=== PATIENT | male | born 1950 | race African-American/Black ===

== ENCOUNTER 2019-02-19 19:05 | Inpatient (IN) | payer OTHER ==
[~2019-02-19] VITALS: Ht 167.6 cm; Wt 66.0 kg
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
--- NOTE | 2019-02-20 05:07 | NUR ---
Patient has been restless, moaning and reporting pain. Patient was given PRN Tylenol and spit the medication out on the floor. Patient appears to be having restlessness and anxiety related more to pain in his right hip. Commercial [employer] Head SALVADOR Díaz notified. Order obtained for PRN Oxycodone. Patient stated he will take the medication from nurse once received from pharmacy.
[2019-02-20 07:30] VITALS: BP 151/85
--- NOTE | 2019-02-20 09:12 | NUR ---
PATIENT WAS SLEEPING WHEN ARRIVING ON UNIT,APPROACHED TO HELP GET READY FOR BREAKFAST. VERBAL [id number] THE NORM - ADDRESSING STAFF WITH DISRESPECT. MULTIPLE TIMES ADVISED TO CORRECT HIS LANGUAGE BUT CONTINUED WITH VULGARITIES AND THREATENING GESTURES. ATE WELL AND TOOK MEDICATIONS WITHOUT INCIDENCE. BLOOD SUGAR 177 AND GIVEN 6 UNITS SCHEDULED OF HUMALOG - PATIENT SCREAMING AND CARING ON IN DINING AREA AND ADVISED TO GO TO HIS ROOM. STATED HAD PAIN IN RIGHT HIP BUT SO DISRUPTIVE WITH STAFF AND EASILY AGITATED.
[2019-02-20 20:01] VITALS: BP 134/74
--- NOTE | 2019-02-20 21:43 | NUR ---
PATIENT REFUSED 2100 DOSE OF INSULIN YELLING AT THIS NURSE 'FUCK NO I DONT WANT IT' THIS NURSE ATTEMPTED TO ENCOURAGE PATIENT TO ADHERE TO MEDICATION AND HE STATED 'FUCK YOU I DONT NEED IT. LEAVE ME THE FUCK ALONE.' THIS NURSE ASKED IF HE WAS REFUSING AND PT STATED 'YES BITCH.'
--- NOTE | 2019-02-21 00:57 | NUR ---
THIS NURSE WAS MAKING ROUNDS ON PATIENTS, ENTERED PATIENTS ROOM AND PATIENT WAS YELLING AND CUSSING HE APPEARED TO HAVE SOME FACIAL GRIMACING AND APPEARED IN PAIN. ADMINISTERED OXYCODONE ORDERED, WILL CONTINUE TO MONITOR.
--- NOTE | 2019-02-21 02:09 | NUR ---
NURSES NOTE - UPON ARRIVAL TO THE UNIT FOR THIS NURSES SHIFT PATIENT WAS PLACED ON A ONE TO ONE DURING DAY SHIFT DUE TO DISRUPTIVE BX EXHIBITED BY THE PATIENT. THIS BEHAVIOR CONTINUED THROUGHOUT THE EVENING REQUIRING MULTIPLE REDIRECTION BY STAFF. PATIENT WOULD APPROACH THE EXIT DOORS, USING DISTRACTION THIS NURSE PERFORMED ASSESSMENT ON PATIENT AND WAS ABLE TO REDIRECT PATIENT BACK TO THE ACTIVITY ROOM WHERE HE CONTINUED TO SHOUT 'FUCK YOU BITCHES.' DURING PHYSICAL ASSESSMENT LLL HAD SLIGHT WHEEZING NOTICED THROUGH ASCULTATION. ALL OTHER AREAS WERE CLEAR. HE CURRENTLY DENIED PAIN DURING ASSESSMENT EARLIER IN THE EVENING. AT APPROXIMATELY 1240 PATIENT WOKE UP C/O PAIN AND BEING COLD THIS NURSE PROVIDED PAIN MEDICATION AND BLANKETS. PATIENT CONTINUED TO USE PROFANITY TO THE SITTER ALL THROUGH THE EVENING. MULTIPLE ATTEMPTS AT REDIRECTION OF BX HAS FAILED. HE DID NOT COMPLAIN OF ANY OTHER MEDICAL CONCERNS WITH NO S/S OF DISTRESS. NURSING WILL MAINTAIN ROUNDS TO ENSURE SAFETY AT ALL TIMES.
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
--- NOTE | 2019-02-21 05:44 | NUR ---
FOLLOW UP TO THORAZINE INJECTION, PATIENT IS IN BED WITH EYES CLOSED RR EVEN AND UNLABORED, NO S/S OF DISTRESS. IT WAS REPORTED TO THIS NURSE THAT PATIENT WAS REFERRING TO 'B' AND REPORTING THAT 'YEAH YOU CAN COME WITH ME B WHEN I LEAVE, I LOVE YOU B.' WILL CONTINUE TO MONITOR FOR ANY S/S OF HALLUCINATIONS.
[2019-02-21 07:00] VITALS: BP 124/71
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
[2019-02-21 10:24] VITALS: BP 134/74
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
--- NOTE | 2019-02-21 23:21 | NUR ---
ASSUMED CARE OF THE PT AT 2015 PM. HE REMAINS ON A 1;1 FOR HIS SAFETY. ALERT ET ORIENTED, GETS AROUND IN A WHEELCHAIR. IS YELLING AT STAFF, IF STAFF IS NOT QUICKS ENOUGH TO GET WHAT HE IS REQUESTING. HS BLOOD SUGAR WAS 120, REFUSED HIS HS INSULIN. HIS HS BLOOD PRESSURE WAS 180/60, CALLED THE NURSE PRACTITIONER, WHO IS GRADING MACHINE OPERATOR AND SHE STATED TO RECHECK HIS BLOOD PRESSURE IN ONE HOUR, IT WAS 140/70. NOTIFIED THE N.P., NO NEW ORDERS. DENIES ANXIETY AND DEPRESSION. DENIES SI AND HI. IS VERY ARGUMENTATIVE AT TIMES. REMAINS ON A 1:1 FOR HIS SAFETY.
--- NOTE | 2019-02-22 03:22 | NUR ---
THE PT HAS BEEN UP AND DOWN OUT OF THE BED TO THE WHEELCHAIR THIS NOC SHIFT. HE SITS THERE, FALLS ASLEEP FOR A MINUTE, THEN WAKES BACK UP. REMAINS ON A 1;1 FOR HIS SAFETY.
[2019-02-22 07:10] VITALS: BP 132/79
[2019-02-22 10:41] VITALS: BP 132/79
--- NOTE | 2019-02-22 10:55 | NUR ---
ASSUMED CARE AT 0700 THIS MORNING. PT. ON THE UNIT, DRESSED, SITTING QUIETLY. HE ATE ON THE UNIT, TOOK HIS MEDICATIONS WITHOUT PROBLEMS NOTED. HE ATTENDED MORNING GROUP FOR HALF OF THE TIME. ONLY GOT UPSET ONE TIME THIS MORNING WHEN HE PRESENTED A SAFE RECEIPT THAT LOOKS LIKE [facility], ASKING FOR THE CONTENTS OF WHAT IS ON THE PAPER. WHEN THIS DIRECTOR PRODUCT SAFETY INFORMED HIM THIS RECEIPT LOOKS LIKE IT IS FROM [employer] HE KEPT INSISTING HE NEEDS HIS THINGS FROM THERE. THIS DIRECTOR PRODUCT SAFETY LOOKED THROUGH THE PT. CHART AND NO SECURITY PAPER NOTED. HE ARGUED FOR A COUPLE OF MINUTES AND THEN STOPPED.
[2019-02-22 20:35] VITALS: BP 140/67
--- NOTE | 2019-02-22 20:47 | NUR ---
2038 BLOOD SUGAR WAS TAKEN IT WAS 212, THIS NURSE TOLD PATIENT I WAS GET HIS INSULIN AND PATIENT REFUSED INSULIN AND STATED 'I DONT NEED IT AND IM NOT TAKING IT.' HIS VOICE WAS CALM AND NO BX NOTED.
--- NOTE | 2019-02-23 02:04 | NUR ---
EARLIER IN THE EVENING THIS NURSE ASSUMED RESPONSIBLITY FOR PATIENT AT APPROXIMATELY 1915. PT ASKED THIS NURSE TO COME TO HIS ROOM. THIS NURSE ATTENDED TO PATIENTS ROOM WHO PT REPORTED THAT HE WAS INCONTINENT X1. THIS NURSE ASSISTED PATIENT TO CLEAN UP AND PROVIDE NECESSARY CLEANING ITEMS AND WASHED HIS CLOTHES. HE STATED 'THANK YOU.' HE WAS MILD MANNERED THROUGHOUT THE EVENING ADHERED TO MEDICATION REGIMEN, ALTHOUGH HE DID REFUSE HIS HS LANTUS DOSE, STATING 'I AM NOT TAKING IT.' HE REPORTED PAIN IN R HIP AT 12/10, PRN OXYCODONE WAS GIVEN WITH NIGHT TIME MEDICATIONS, UPON REASSESSMENT HE WAS IN BED WITH EYES CLOSED AND RR EVEN AND UNLABORED. HE ALSO WAS OBSERVED IN HIS WHEELCHAIR IN THE DAY ROOM NOT CAUSING ANY DISTURBANCES AND MINIMALLY INTERACTING WITH OTHER PEERS APPROPRIATELY. HE DENIES SI HI AND HALLUCINATIONS AT THIS TIME. HE REPORTS GOOD SLEEP/APPETITE. LUNGS CLEAR TO AUSCULTATION, CAP REFILL <3 SECONDS. WILL CONTINUE ROUNDS TO ENSURE SAFETY AT ALL TIMES.
--- NOTE | 2019-02-23 15:43 | NUR ---
CRYSTAL left a voicemail for Ms. Abbasi concerning pt care. CRYSTAL provided contact information requesting a phone call back. CRYSTAL will follow-up with Ms. Abbasi on February 24, 2019.
--- NOTE | 2019-02-23 16:38 | NUR ---
ASSUMED CARE AT 0700 TODAY. HE HAS REMAINED COOPERATIVE WITH MEDICATIONS TODAY. SPOKE WITH DR. BOB TODAY. HE ATE ON THE UNIT AND ATTENDED GROUPS. HAS BEEN ON THE UNIT MOST OF THE SHIFT. HAS NOT BEEN INCONTINENT THIS SHIFT. HE STATED HE HAD A BLOWEL MOVENENT YESTERDAY.
[2019-02-23 19:43] VITALS: BP 142/75
--- NOTE | 2019-02-23 22:31 | NUR ---
ASSUMED CARE OF THE PT AT 1915. WAS SITTING IN THE WHEELCHAIR IN THE DAYROOM WHEN THIS INSULATION ESTIMATOR CAME ON DUTY. THE PT WAS WATCHING TV. DENIES PAIN AT THIS TIME. DENIES ANXIETY AND DEPRESSION, DOES HAVE A FLAT AFFECT. DENIES SI AND HI. CONTINUES ON 12 MINUTE CHECKS FOR HIS SAFETY.
[2019-02-24 10:03] VITALS: BP 158/93
--- NOTE | 2019-02-24 16:40 | NUR ---
PATIENT WAS UP AND OUT ON THE UNIT SITTING IN DAY RAOOM WHEN CARE ASSUMED. PATIENT ATE 100% MEALS. HE REFUSED MORNING INSULIN, DR. GERARD NOTIFIED, HE STATES WILL REVIEW INSULIN ORDERS. PATIENT TOOK THE REST OF HIS MEDICATION TODAY. PATIENT DENIES SUICIDAL AND HOMOCIDAL IDEATION. HE DENIES DEPRESSION/ANXIETY, FOCUSED ON "GOING HOME" PRN PAIN MEDICINE GIVE X1 TODAY, PATIENT DID PARTICIPATE IN GROUP THERAPY. NO AGITATION OR AGGRESSIVE BEHAVIOR NOTED. PATIENT CAN GET IRRITABLE WITH REDIRECTION. NO SIGN OF ACUTE DISTRESS NOTED, WILL MONITOR FOR SAFETY.
[2019-02-24 19:44] VITALS: BP 145/71
--- NOTE | 2019-02-24 22:10 | NUR ---
ASSUMED CARE OF THE PT AT 1915. THE PT WAS IN THE DAYROOM WHEN THIS ART MUSEUM DOCENT CAME ON DUTY. HE WAS SITTING IN HIS WHEELCHAIR. DENIES ANXIETY AND DEPRESSION, DENIES SI AND HI CURRENTLY. DENIES A/V HALLUNICATIONS. REMAINS ON 12 MINUTE CHECKS FOR THE PT'S SAFETY.
--- NOTE | 2019-02-25 00:43 | NUR ---
THE PT'S HS BLOOD SUGAR WAS 300. THE PT REFUSED TO LET ME RECHECK IT AND HE REFUSED HIS LANTUS INSULIN. ATTEMPTED TO EXPLAIN TO THE PT THE IMPORTANCE OF HIM TAKING HIS LANTUS, HE STILL REFUSED TO LET THIS SEMICONDUCTOR MANUFACTURING TECHNICIAN GIVE HIM ANY INSULIN.
--- NOTE | 2019-02-25 06:12 | NUR ---
THE PT SLEPT 3.6 HOURS LAST NIGHT.
[2019-02-25 07:40] VITALS: BP 151/85
[2019-02-25 09:07] VITALS: BP 151/85
[2019-02-25] MEDS ORDERED: FLOMAX0.4 MG PO (09:08)
[2019-02-25] MEDS ORDERED: OXYCODONE HCL 55 MG PO (09:09)
[2019-02-25] MEDS ORDERED: ADULT LOW DOSE81 MG PO (09:09)
[2019-02-25] MEDS ORDERED: DEPAKOTE500 MG PO (09:10)
[2019-02-25] MEDS ORDERED: DEPAKOTE 250MG250 M1 PO (09:10)
--- NOTE | 2019-02-25 09:12 | NUR ---
Patient Name: REDDY SALAZAR Admission Date: 02/19/19 DISCHARGE PLAN: Pt will discharge home with continuation of care through [facility]. Care Assessment: Pt was assessed by Dr. Diehl and diagnosed with Bipolar I Disorder with Maniac Psychotic Features. Level II Assessment: None Transportation: Pt will be transported through [employer] [facility]. Special Instructions/Notes: Pt will need attend his appointment through [facility] on March 19, 2019 at 9:45am. DISCHARGE TO PLACEMENT: HOME Address: [address] [place] [id number] Phone: Fax: Contact Name: Pt daughter Phone: PCP: [facility] Psychiatrist: Dr. Banda
[2019-02-25] MEDS ORDERED: SEROQUEL 100 M100 M1 PO ×2 (09:13→09:14)
[2019-02-25] MEDS ORDERED: SEROQUEL 25 MG25 M1 PO (09:14)
[2019-02-25] MEDS ORDERED: LANTUS100 UNIT/M SUBQ (09:15)
[2019-02-25] MEDS ORDERED: NOVOLOG100 UNIT/1 SUBQ (09:15)
--- NOTE | 2019-02-25 11:03 | NUR ---
SW left a voicemail concerning pt care. SW provided contact information requesting a call back.
--- NOTE | 2019-02-25 11:07 | NUR ---
CRYSTAL spoke with Zoraidabailee Abbasi ([facility]) concerning the care of the pt. Ms. Abbasi stated that the pt does not have a place to live, and the pt is been evicted as we speak. Ms. Abbasi stated that the pt is not cognitive enough to make a sound decision. She stated that she would like to come in see the pt in the doctor to discuss his care. CRYSTAL schedule a meeting with Teena Elroy and Dr. Diehl. CRYSTAL will follow-up with pt when Ms. Abbasi arrives.
--- NOTE | 2019-02-25 13:13 | NUR ---
CRYSTAL spoke with Ariana Harding at [facility] to see if pt can be evalluated to her facility. CRYSTAL sent a referral to [facility]. CRYSTAL assisted pt with signing DPOA documentation. Pt stated that he would like his daughter to be his DPOA, and signed the document. The document was notarized, and enaced by Dr. Diehl. Ariana will be here at 2:00pm to evaluate pt, and see if he can be accepted into the [facility]. CRYSTAL spoke with Leila the daughter of the pt to see if she can sign the documentation to assist her father into [facility]. Tatiana stated that she is on her way to the hospital, and will assist her father going into the [facility]. Crystal will follow-up with the upon discharge.
--- NOTE | 2019-02-25 13:40 | NUR ---
ASSUMED PATIENT CARE AT D700. PATIENT UP IN D.R., SITTING IN W/C, APPEARING DROWSY. ATE BREAKFAST, COMPLIANT WITH MEDICATIONS EXCEPT REFUSED INSULIN. DISCHARGE PLANNING FOR TODAY; HOWEVER, INFORMAITON RECEIVED THAT PATIENT EVICTED FROM HIS HOME. CRYSTAL, C.T., IS ATTEMPTING TO MAKE OTHER SATISFACTORY ARRANGEMENTS.
--- NOTE | 2019-02-25 15:11 | NUR ---
SW sent a referral to [facility], [facility], [facility], and [facility]. CRYSTAL will follow-up with the facility to assit with the pt care.
--- NOTE | 2019-02-25 19:23 | NUR ---
PATIENT HAD DISCHARGE PLANNED FOR TODAY. HOWEVER, HIS DISCHARGE WAS CANCELLED R/T S.W. DISCOVERING THAT PATIENT HAS BEEN EVICTED FROM HIS HOME. ISSUES WITH FINDING ACCEPTABLE PLACEMENT FOR PATIENT. WILL BE HERE FOR AN ADDITIONAL DAY OR TWO, PENDING PLACEMENT. ADMINISTERED PAIN MEDICATION FOR PAIN IN RIGHT LEG AND THIGH, PER PATIENT. MEDICATION MADE PATIENT DROWSY THE REMAINDER OF THIS SHIFT. DR. GERARD SAW PATIENT TODAY, ENCOURAGED PATIENT TO BE COMPLIANT WITH HIS INSULIN. PATIENT ACCEPTED HIS 1600 INSULIN, 4 UNITS OF LISPRO, PER ORDER.
[2019-02-25 19:45] VITALS: BP 128/77
[2019-02-26 01:31] VITALS: BP 128/77
--- NOTE | 2019-02-26 02:51 | NUR ---
PATIENT COMPLAINED OF R HIP PAIN STATING 'THIS IS WHY I CANT SLEEP.' OXYCODONE GIVEN ORDERED FOR 07/23 PAIN. WILL CONTINUE TO MONITOR.
--- NOTE | 2019-02-26 03:55 | NUR ---
PT OUT IN DAY AREA FOR WRAP UP GROUP AND EVENING SNACK. ASSISTED TO ROOM AND TO BED FOLLOWING GROUP. TOOK HS MEDS W/O PROBLEM. SLEPT WELL UNTIL ABOUT 0200. RESPONDED POSITIVLY TO PAIN MED. REMAINED UP IN DAY ROOM, INTERACTING WITH STAFF.
[2019-02-26 07:27] VITALS: BP 143/87
--- NOTE | 2019-02-26 09:46 | NUR ---
CRYSTAL called in left a voicemail with Lizbeth Velasquez who is the hospital liasion. CRYSTAL provided contact information for her to return call back. CRYSTAL wanted to know if she is willing accept the pt into the facility. CRYSTAL will follow-up with the pt this evening. CRYSTAL left voicemail for Lisette from [facility]. CRYSTAL provided contact information.
--- NOTE | 2019-02-26 09:50 | NUR ---
CRYSTAL sent a referral to [facility], and [facility] to see if the pt can be accepted into the facility.
--- NOTE | 2019-02-26 11:25 | NUR ---
ASSUMED PATIENT CARE AT 0700. PATIENT UP IN D.R. AT THAT TIME, DROWSY, SITTING IN W/C AT TABLE.
--- NOTE | 2019-02-26 13:16 | NUR ---
PATIENT COMPLAINT WITH A.M. MEDICATIONS, INCLUDING INSULIN. AGAIN PROMISED DR. GERARD THAT HE WOULD TAKE HIS INSULIN, WHICH HE DID. HOWEVER, AT NOON, PATIENT WAS AT FIRST RESITANT TO TAKING INSULIN. AGITATED, REPEATEDLY STATED THAT IF "HE CAN'T DO WHAT HE PROMISED, WHY SHOULD I DO WHAT I PROMISED?" NURSE CLARIFIED THAT IT WAS NOT DR. GERARD WHO DECIDES WHEN HE CAN LEAVE, RATHER, DR. BOB. PATIENT EVENTUALLY ACCEPTED HIS INSULIN.
--- NOTE | 2019-02-26 13:19 | NUR ---
CRYSTAL heard back from [facility], [facility], [facility], [facility], [facility], [facility], [facility], and [facility] stated that are not able to take the pt due to his behavior. CRYSTAL is still waiting on [facility] to see if they will approve him.
--- NOTE | 2019-02-26 13:22 | NUR ---
CRYSTAL spoke with the pt daughter concerning pt items being removed from the apartment by the [employer]. Tatiana stated that the apartment complex is not allowing her to remove the items. CRYSTAL expalined if she would take the DPOA to Ms. Jones would allow her move the items. Tatiana stated that the apartment complex is giving her the run around concerning the items, and she feels that Ms. Jones has an attitude. CRYSTAL stated that Ms. Jones is waiting on the document to come toher before the roto mixer operator come to the aprtment at 10:00am. CRYSTAL mention that so far the facilities are not accepting her father, and if a facility does not accept we will have to look for an alternative such as a prison. CRYSTAL will follow-up with Tatiana concerning pt discharge.
--- NOTE | 2019-02-26 14:54 | NUR ---
Nutrition: pt admit with schizophrenia, bipolar with psychotic features. No weight hx, BMI WNL. Eating 100% of meals on carb controlled diet. BG 154-257. Noted refuses medication including insulin at times and has required coaxing to take insulin. Discharge delayed due to social issues. Consider low risk.
--- NOTE | 2019-02-26 19:39 | NUR ---
PATIENT COMPLAINED OF R HIP PAIN, GAVE OXYCODONE ORDERED PAIN 07/23. REPORTED 'I FELT BAD TO ASK.'
[2019-02-26 20:04] VITALS: BP 121/67
--- NOTE | 2019-02-27 00:16 | NUR ---
NURSES NOTE - ACCEPTED CARE FOR PATIENT AT 1920, FOLLOWING ACCEPTANCE OF CARE THIS NURSE WENT TO DISCUSS WITH PATIENT RELATED TO HIS DAY. HE APPEARED WITH A FLAT SAD AFFECT, WITH GRIMACES AT TIMES WHEN ADJUSTING IN THE CHAIR. HE FURTHER EXPLAINED 'I JUST DONT GET IT, I WAS SUPPOSE TO GO HOME YESTERDAY AND THEN TODAY, I DONT UNDERSTAND WHY YOU ALL HAVE TO FIND ME A PLACE BUT I CANT GO FIND MY OWN.' THIS NURSE REASSURED THE PATIENT THAT THIS WAS FOR HIS SAFETY AFTER DISCHARGING. WHILE NOTICING FACIAL GRIMACING THIS NURSE OFFERED PRN MEDICATION WHICH WAS GIVEN AT 1940 PRESCRIBED BY PHYSICIAN. THIS NURSE ALSO INFORMED PATIENT THAT THE PHYSICIAN HAD CHANGED HIS INSULIN ORDERS TO A TABLET, METFORMIN. PATIENT REPORTED THIS IS AN 'ALLERGY' IT GIVES HIM LOOSE STOOLS, THIS NURSE AND PATIENT DISCUSSED TRUE ALLERGIES, BUT PATIENT STILL REFUSED TO TAKE PRESCRIBED METFORMIN. HE REPORTED THAT HE HAD A BM T-1, BUT NOT ONE TODAY. HE DOES NOT APPEAR TO BE IN DISTRESS, DENIES SI HI SH WELL ANY HALLUCINATIONS. NURSING WILL ENSURE ROUNDS ARE COMPLETED TO ENSURE SAFETY AT ALL TIMES.
--- NOTE | 2019-02-27 05:38 | NUR ---
PATIENT C/O RIGHT HIP PAIN 07/23 STATING 'IT HURTS LIKE A MOTHER FUCKER.' THIS NURSE ADMINISTERED PRN OXYCODONE ORDERED.
--- NOTE | 2019-02-27 06:18 | NUR ---
LAST NOC PATIENT GOT 6 HOURS OF SLEEP.
[2019-02-27 07:00] VITALS: BP 145/81
--- NOTE | 2019-02-27 09:59 | NUR ---
CRYSTAL called in a left a voicemail with Gene the adminstrator at [facility] to see if the pt will be accepted into the facility. CRYSTAL provided contact information to return phone call. CRYSTAL will follow-up with pt upon discharge.
--- NOTE | 2019-02-27 12:29 | NUR ---
CRYSTAL and Judith charge nurse spoke with pt daughter Tatiana concerning her father going against AMA. She stated that she does not agree with the decision. She mention that she will contact the major case detective Ms. De Leon, and her brake press operator. CRYSTAL advised that she will mention to the doctor her concerns. SW mention that Dr. Diehl concerning the risk involved leaving the hospital, and he stated that he accept the risk, and would like to leave AMA. SW provided the documentation, and pt signed. CRYSTAL will assist with finding a motel, and transporting him to the motel. CRYSTAL will follow-up with pt upon discharge.
[2019-02-27] MEDS ORDERED: TRADJENTA5 MG PO (12:33)
[2019-02-27] MEDS ORDERED: REMERON15 MG PO (12:33)
[2019-02-27] MEDS ORDERED: GLUCOPHAGE500 MG PO (12:33)
--- NOTE | 2019-02-27 12:38 | NUR ---
SW met with pt to make sure he has an clear understanding of AMA. SW mention that he has diabetes in there are risk involved concerning his health if he does not take the proper medication. Pt stated that he understand if he does not take his diabetes medication that he can go into a coma, heart attack, and risk of a stroke. Pt stated that he does not want to be in the hospital, and that he would like to live in a motel. SW mention that he have appointment with Dr. Banda on March 19, 2019, and he go into a [facility] for medical care at the [facility]. Pt stated that he will follow-up with his doctor. SW provided pt with a card if has any questions. SW provide pt with mental health hotline number. SW mention to the pt if he has health problems he is more than welcome to come back to emergency roon if needed. Pt stated that he understood, and he is ready to be discharge. SW will follow-up with upon discharge.
[2019-02-27 12:58] VITALS: BP 151/85
--- NOTE | 2019-02-27 13:05 | NUR ---
Patient Name: REDDY SALAZAR Admission Date: 02/19/19 DISCHARGE PLAN: Pt chose to be discharge AMA. Pt stated that he wanted to be discharge to the [facility]. Care Assessment: Pt was assessed by Dr. Diehl, and diagnosed with Diabetes Melitius, and Bipolar I Disorder. Level II Assessment: SW completed Level II screening, but was instructed by Dr. Diehl to not submit. Transportation: Pt will be transported by the [employer] to the [facility]. Special Instructions/Notes: Pt was educated on the importance of recieving care concernig his diabetes . SW mention that he has [facility] care on March 06, 2019 at 11:00am. Pt has appointment with Dr. Banda on March 19, 2019 at 9;45am for psychiatric. Pt stated that he would use the [facility] to make it to his appointment. SW notified the pt daughter Tatiana that her father is choosing to go AMA. SW mention that Dr. Diehl stated pt was aware X4, and willing to allow him to be AMA. Pt stated that he is aware of risk that is involved with his diabetes, and mental health. Dr. Diehl provided scripts to [facility] on [address]. Pt stated that he would make sure that he gets his medication in take appropriately. DISCHARGE TO PLACEMENT: [facility] Facility: Fax: Address: [address] [place] [id number] Contact Name: Phone: PCP: [facility] on March 06, 2019 ([facility]) Psychiatrist: Dr. Banda on March 19, 2019.
--- NOTE | 2019-02-27 14:27 | NUR ---
0715: Report rec from noc shift, care assumed. Mobile in w/c in DR and to DR, feeds self, appetite good, takes meds whole w/o difficulty. Cooperative with staff, and other pts. 1229: Phone conference conducted by by CRYSTAL Sousa with pts dtr Tatiana. Discussion rearging discharge of pt to hotel per pts request and is knowledgeable about risk, safety and aware of AMA paperwork as discussed with pt. Pt requested and verified that he is aware of AMA and will sign paperwork. Tatiana, pts dtr states "she is not ok with the discharge to a hotel." Tatiana given educational information regarding pts rights and pt making decision about discharging from hospital.
--- NOTE | 2019-02-27 15:02 | NUR ---
SW met with pt to provide him with a copy of his upcoming schedule appointment with Dr. Banda, and the [facility]. SW mention that it is very important that he keeps these appointment. Pt stated that he will make sure to attend both appointments. Pt had appointment schedule for March 19, 2019 at [facility] at 9:45am. Then pt will have appointment on March 06, 2019 at the [facility] at 11:00am through [facility]. CRYSTAL provided the pt with vouchers through [employer] to assist with transporting to [place], and then to [facility] on [address] [facility] [address]. SW will follow-up with the pt upon discharge.
--- NOTE | 2019-03-03 09:21 | D ---
[facility] [place] [address] [place] [address] DISCHARGE SUMMARY Name: REDDY SALAZAR Room #: 521B-B DIS IN M.R.#: [id number] Admission: 02/19/19 ������������������ Attend Phys: Ronni Diehl DO Discharge: 02/27/19 ������������������ Date of : 48 Report #: [id number] THIS REPORT FOR: //name// CC: Ronni Diehl FAM physician/PCP DATE OF SERVICE: 02/27/2019 INPATIENT PSYCHIATRIC DISCHARGE SUMMARY ATTENDING PHYSICIAN: Ronni Diehl DO FERRYBOAT CAPTAIN: At the time of discharge is Ronni Hutson MD. Please note, this is a discharge against medical advice. DISCHARGE DIAGNOSES: Bipolar 1 disorder, most recent episode manic, severe with psychotic features, improved. Medical comorbidities include hypertension; diabetes mellitus type 2, suboptimal control; benign prostatic hypertrophy. DISCHARGE DIET: Diabetic diet 1800 calorie daily. The patient will be discharging to a mot in [place], [place]. DISCHARGE MEDICATIONS: Tamsulosin 0.4 mg p.o. daily, Rx called in for #30; aspirin 81 mg p.o. daily, Rx called in for #30; oxycodone IR had been listed as a p.r.n.; however, since he is leaving against medical advice, narcotic prescription was not provided today; Depakote 750 mg p.o. daily in a.m. and 1000 mg p.o. at bedtime for mood stabilization; Seroquel 100 mg in the morning, 125 at 2:00 p.m. and 150 at bedtime. The patient no longer is on oral insulin. He is on Tradjenta 5 mg p.o. daily, metformin 500 mg p.o. b.i.d. with meals. The patient should obtain [facility] 1 week, primary care appointment within 2 weeks. This is set to be done at [facility]. REASON FOR ADMISSION: The patient is transferred from [facility] ER as a 96-hour hold for becoming combative, verbally aggressive towards staff at the [facility]. HOSPITAL COURSE: The patient was set to be discharged on Saturday of this week. At that time, his daughter, Michelle, as well as [facility], Zoraida Abbasi, do to the patient having poor compliance and being homeless. During that day, the patient showed poor insight and was willing to appoint DPOA. It was inactive for 2 days. During that time, the patient improved in terms of his orientation, awareness of his diseases, his ability to formulate a discharge plan. In addition, we had attempted to find placement during those 2 days and had a number of turndowns. The patient brought up on the day of discharge that [address] [address] DISCHARGE SUMMARY Name: REDDY SALAZAR Room #: 521B-B DIS IN M.R.#: [id number] Admission: 02/19/19 ������������������ Attend Phys: Ronni Diehl DO Discharge: 02/27/19 ������������������ Date of : 48 Report #: [id number] he wished to be discharged to a motel. He was aware that a better plan had not yet been arrived at. However, I felt legally and ethically bound not to maintain enactment of DPOA when the patient had regainment of the capacity. Musculoskeletal: Using a wheelchair mainly on the day of discharge, has also been using a walker. MENTAL STATUS EXAMINATION: This is a well-developed, disheveled black male, appearing to be stated age. Attention intact. Speech a bit dysarthric- baseline. No psychomotor agitation, no psychomotor retardation. Mood and affect congruent and constricted. Denied SI or HI. Denied hopelessness and helplessness. Denied homicidal intent or plan. Memory not formally tested. Insight limited. Judgment fair to limited. Fund of knowledge average. Also, laboratory data this admission, glucose typically varied between 150 and 250. He had a Depakote level of 102 on 02/25/2019, which even though is borderline high, I think, for this patient given his chronic hospitalizations and mood instability, it is reasonable. Again, he is discharged to [facility]. Both the patient's daughter, Michelle and [facility] worker were informed of the discharge today. Appointment at 9:45 a.m. on 03/19/2019 with [facility] as well as Psychiatry appointment at [facility] clinic at 11:00 a.m. on March 06 for primary care. Taxi then to the [facility] at [address] [place] [address]. ��������������������������������������������� <ELECTRONICALLY SIGNED> ���������������������������������������� By: Ronni Diehl DO ��������������������������������������������� 03/03/19 0921 [id number] Ronni Diehl DO /nt
== END 2019-02-27 15:30 | disposition home or self-care (01) | DRG 885 ==
LOC: SBH
PROVIDERS: ADMIT Psychiatry & Neurology Psychiatry
DX: F31.2 Bipolar disorder, current episode manic severe with psychotic features (principal); Z96.641 Presence of right artificial hip joint; I10 Essential (primary) hypertension; E11.42 Type 2 diabetes mellitus with diabetic polyneuropathy; N40.0 Benign prostatic hyperplasia without lower urinary tract symptoms; E11.9 Type 2 diabetes mellitus without complications; E78.5 Hyperlipidemia, unspecified; Z85.46 Personal history of malignant neoplasm of prostate; Z79.82 Long term (current) use of aspirin; Z79.899 Other long term (current) drug therapy; Z87.81 Personal history of (healed) traumatic fracture; Z91.14 Patient's other noncompliance with medication regimen; Z88.8 Allergy status to other drugs, medicaments and biological substances
CPT/HCPCS: 10880

== ENCOUNTER 2020-01-09 12:42 | Emergency (ER) | payer OTHER ==
[~2020-01-09] VITALS: Ht 167.6 cm; Wt 72.6 kg
[~2020-01-09 12:42] MED LIST: ADULT LOW DOSE81 MG PO; DEPAKOTE 250MG250 M1 PO; DEPAKOTE500 MG PO; FLOMAX0.4 MG PO; GLUCOPHAGE500 MG PO; LANTUS100 UNIT/M SUBQ; NOVOLOG100 UNIT/1 SUBQ; OXYCODONE HCL 55 MG PO; REMERON15 MG PO; SEROQUEL 100 M100 M1 PO; SEROQUEL 25 MG25 M1 PO; TRADJENTA5 MG PO
[2020-01-09] MEDS ORDERED: NOVOLOG100 UNIT/1 SUBQ (14:05)
[2020-01-09] MEDS ORDERED: LANTUS100 UNIT/M SUBQ (14:05)
[2020-01-09 14:44] VITALS: BP 170/95
== END 2020-01-09 14:45 | disposition home or self-care (01) ==
LOC: ER 12:42
DX: E11.65 Type 2 diabetes mellitus with hyperglycemia (principal); I10 Essential (primary) hypertension; E11.42 Type 2 diabetes mellitus with diabetic polyneuropathy; E78.5 Hyperlipidemia, unspecified; F20.9 Schizophrenia, unspecified; F17.210 Nicotine dependence, cigarettes, uncomplicated; Z85.46 Personal history of malignant neoplasm of prostate; Z91.14 Patient's other noncompliance with medication regimen; Z88.8 Allergy status to other drugs, medicaments and biological substances

== ENCOUNTER 2020-03-16 13:06 | Emergency (ER) | payer OTHER ==
[~2020-03-16] VITALS: Ht 175.3 cm; Wt 68.0 kg
== END 2020-03-16 13:33 | disposition left against medical advice (07) ==
LOC: ER 13:06
DX: M79.10 Myalgia, unspecified site (principal); F91.8 Other conduct disorders; I10 Essential (primary) hypertension; F20.9 Schizophrenia, unspecified; E11.42 Type 2 diabetes mellitus with diabetic polyneuropathy; E78.5 Hyperlipidemia, unspecified; F17.210 Nicotine dependence, cigarettes, uncomplicated; Z88.8 Allergy status to other drugs, medicaments and biological substances

== ENCOUNTER 2020-08-11 08:07 | Emergency (ER) | payer OTHER ==
[~2020-08-11] VITALS: Ht 167.6 cm; Wt 65.8 kg
[2020-08-11 09:11] LABS: URINE BILIRUBIN NEGATIVE (Negative); URINE BLOOD TRACE (Negative); URINE CLARITY CLEAR; URINE COLOR YELLOW; URINE GLUCOSE-RANDOM* 3+ (Negative); URINE KETONES NEGATIVE (Negative); URINE LEUKOCYTES-REFLEX NEGATIVE (Negative); URINE NITRITE-REFLEX NEGATIVE (Negative); URINE PROTEIN (DIPSTICK) NEGATIVE (Negative); URINE UROBILINOGEN 0.2 E.U./dl (0.2-1.0)
[2020-08-11 09:18] LABS: AMP/METHAMP Negative (Negative); BARBITURATES Negative (Negative); BENZODIAZEPINES Negative (Negative); COCAINE Negative (Negative); METHADONE Negative (Negative); OPIATES Negative (Negative); PCP Negative (Negative)
[2020-08-11 09:56] VITALS: BP 152/78
== END 2020-08-11 10:35 | disposition home or self-care (01) ==
LOC: ER 08:07
PROVIDERS: Emergency Medicine
DX: S50.312A Abrasion of left elbow, initial encounter (principal); S50.311A Abrasion of right elbow, initial encounter; S80.212A Abrasion, left knee, initial encounter; S80.211A Abrasion, right knee, initial encounter; S90.511A Abrasion, right ankle, initial encounter; B37.42 Candidal balanitis; I10 Essential (primary) hypertension; E11.9 Type 2 diabetes mellitus without complications; E78.5 Hyperlipidemia, unspecified; F17.210 Nicotine dependence, cigarettes, uncomplicated; Z79.4 Long term (current) use of insulin; Z79.899 Other long term (current) drug therapy; Z88.8 Allergy status to other drugs, medicaments and biological substances; Y04.2XXA Assault by strike against or bumped into by another person, initial encounter; Y93.89 Activity, other specified; Y92.89 Other specified places as the place of occurrence of the external cause; Y99.8 Other external cause status

== ENCOUNTER 2020-08-26 21:04 | Emergency (ER) | payer OTHER ==
[~2020-08-26] VITALS: Ht 177.8 cm; Wt 72.6 kg
--- NOTE | ~2020-08-26 | EMS ---
[address] [address] EMS Patient Care Report Name: REDDY SALAZAR Room #: PRE M.R.#: [id number] Admission: Attend Phys: Discharge: Date of : 48 Report #: [id number] THIS REPORT FOR: //name// Report Transmitted: 08/26/2020 20:28 EMS Care Summary [place], [place]/[facility] Incident [id number] @ 08/26/2020 20:10 Incident Location [address] [place] [address] Patient REDDY SALAZAR Male, 70 Years 1950 Patient Address [address] [place] [address] Patient History Diabetes,Hypertension (HTN),Hyperlipidemia,Schizophrenia,Prostate Cancer, Patient Medications Insulin, Chief Complaint HYPERGLYCEMIA Disposition Transported No Lights/[facility] Reason Overdose/Poisoning/Ingestion Transported To [facility] Narrative DISPATCHED TO AN OVERDOSE. ARRIVED ON SCENE OF A GROCERY STORE TO FIND MALE PATIENT SITTING IN A CHAIR IN THE FRONT ENTRYWAY. SECURITY STATED THAT HE WAS FOUND IN THE RESTROOM HAVING BEEN THERE FOR OVER AN HOUR. PATIENT HAD DIFFICULTY WALKING AND ASKED FOR AN AMBULANCE AT THIS TIME. PATIENT SAID THAT HE WAS JUST TIRED AND HIS KNEES HURT. HE DENIED DRUG AND ALCOHOL USE. WHEN EXAMINING HIM HE WAS FOUND TO BE WEARING A HOSIPITAL BAND FROM THREE DAYS PRIOR. PATIENT SAID HE WAS SEEN THEN FOR HYPERGLYCEMIA. HE SAID HE WOULD LIKE [address] [address] EMS Patient Care Report Name: REDDY SALAZAR Room #: PRE M.R.#: [id number] Admission: Attend Phys: Discharge: Date of : 48 Report #: [id number] TO BE SEEN AT THE [facility]. PATIENT WAS ASSISTED IN STANDING AND SITTING ON THE COT, SECURED WITH STRAPS, AND MOVED TO THE AMBULANCE. PATIENT VITALS WERE OBTINED AND AN IV WAS PLACED. PATIENT REFUSED TO ANSWER ANYMORE QUESTIONS PERTAINING TO HIS MEDICAL HISTORY, MEDICAL CONDITIONS, MEDICATIONS, OR CURRENT COMPLAINTS. HE DID SAY THAT HE HAS BEEN TAKING HIS MEDICATIONS PRESCRIBED. PATIENT WAS TRANSPORTED TO THE HOSPITAL WITH VITALS AND INTERVENTIONS MONITORED ENROUTE. UPON ARRIVAL AT THE HOSPITAL PATIENT WAS MOVED INTO THE ED ON THE COT AND LIFTED OVER TO THE HOSPITAL BED. PATIENT CARE WAS TURNED OVER TO ED NURSING STAFF. Initial Vitals @20:36P: 76,BP: 126/80,CO: 3,SpO2: 95, @20:28P: 78,BP: 133/82,CO: 3,SpO2: 95, @20:25P: 82,R: 16,BP: 159/103,Pain: 0/10,GCS: 14,Glucose: -2,CO: 5,SpO2: 95,Revised Trauma: 12, @20:46P: 75,R: 16,BP: 127/73,Pain: 6/10,GCS: 14,CO: 3,SpO2: 97,Revised Trauma: 12, Assessments @20:25MENTAL:Other,Person Oriented,Place Oriented,Event Oriented,Time Oriented,SKIN:HEENT:Head/Face: No Abnormalities,Neck/Airway: No Abnormalities,LUNG SOUNDS:General: No Abnormalities,Left Upper: No Abnormalities,Right Upper: No Abnormalities,Left Lower: No Abnormalities,Right Lower: No Abnormalities,ABDOMEN:General: No Abnormalities,Left Upper: No Abnormalities,Right Upper: No Abnormalities,Left Lower: No Abnormalities,Right Lower: No Abnormalities,PELVIS//GI:No Abnormalities,EXTREMITIES:Left Leg: Other,Right Leg: Other,Capillary Refill: Right Upper: < 2 Sec,Left Arm: No Abnormalities,Right Arm: No Abnormalities,PULSE:Radial: 2+ Normal,NEURO:Weakness Left-Sided,Weakness Right-Sided, Impression Diabetic Hyperglycemia Procedures @20:25ALS AssessmentResponse: UnchangedSucceeded@20:35Saline Lock 10cc (20 ga) Site: Forearm-LeftResponse: UnchangedSucceeded Timeline 20:09,Call Received 20:09,Dispatch Notified 20:10,Dispatched 20:11,En Route 20:20,On Scene 20:25,At Patient 20:25,ALS Assessment,Response: UnchangedSucceeded, 20:25,BP: 159/103 M,PULSE: 82,RR: 16 R,SPO2: 95 Ox,ETCO2: ,BG: -2,PAIN: 0,GCS: [facility] [address] [place] [address] EMS Patient Care Report Name: REDDY SALAZAR Room #: PRE M.R.#: [id number] Admission: Attend Phys: Discharge: Date of : 48 Report #: [id number] 14, 20:28,BP: 133/82 M,PULSE: 78,RR: R,SPO2: 95 Ox,ETCO2: ,BG: ,PAIN: ,GCS: , 20:35,Saline Lock 10cc 20 ga Site: Forearm-Left,Response: UnchangedSucceeded, 20:36,BP: 126/80 M,PULSE: 76,RR: R,SPO2: 95 Ox,ETCO2: ,BG: ,PAIN: ,GCS: , 20:37,Depart Scene 20:46,BP: 127/73 M,PULSE: 75,RR: 16 R,SPO2: 97 Ox,ETCO2: ,BG: ,PAIN: 6,GCS: 14, 20:55,At Destination 21:15,Call Closed Disclaimer v1.1 Copyright 2020 [employer] This EMS Care Summary contains data elements from the applicable legal record (which may be displayed differently). It is designed to provide pertinent information for the following purposes: continuity of care, clinical quality, and state data reporting. The complete legal record is available to ED staff and administrators of the receiving hospital in [employer] Patient Tracker. All data is provided "as is."
[2020-08-26 21:46] LABS: ABSOLUTE NEUTROPHILS 4.1 thou/uL (1.4-8.2); HEMATOCRIT 36.7 % (42.0-52.0); HEMOGLOBIN 11.9 gm/dL (14.0-18.0); LYMPHOCYTES 24.5 % (24.0-44.0); MCH 29.5 pg (26.0-34.0); MCHC 32.3 g/dL (28.0-37.0); MCV 91.1 fL (80.0-100.0); MONOCYTES 6.8 % (1.0-8.0); PLATELET COUNT 246 thou/uL (150-400); POLYS 66.7 % (36.0-66.0); RBC 4.03 mil/uL (4.50-6.00); RDW 14.4 % (10.5-14.5); WBC 6.1 thou/uL (4.0-11.0)
[2020-08-26 21:56] LABS: CALCIUM 8.3 mg/dL (8.5-10.1); CREATININE 1.4 mg/dL (0.7-1.3); POTASSIUM 4.8 mmol/L (3.5-5.1)
[2020-08-26 22:33] LABS: URINE BILIRUBIN NEGATIVE (Negative); URINE BLOOD NEGATIVE (Negative); URINE CLARITY CLEAR; URINE COLOR YELLOW; URINE GLUCOSE-RANDOM* 3+ (Negative); URINE KETONES NEGATIVE (Negative); URINE LEUKOCYTES-REFLEX NEGATIVE (Negative); URINE NITRITE-REFLEX NEGATIVE (Negative); URINE PROTEIN (DIPSTICK) NEGATIVE (Negative); URINE SPECIFIC GRAVITY <= 1.005 (1.005-1.035); URINE UROBILINOGEN 0.2 E.U./dl (0.2-1.0)
[2020-08-26 22:49] LABS: AMP/METHAMP Negative (Negative); BARBITURATES Negative (Negative); BENZODIAZEPINES Negative (Negative); COCAINE Negative (Negative); METHADONE Negative (Negative); OPIATES Negative (Negative); PCP Negative (Negative)
[2020-08-27 03:53] VITALS: BP 148/75
--- NOTE | 2020-08-27 09:30 | EKG ---
[facility] [address] [place] [address] ELECTROCARDIOGRAM REPORT Name: REDDY SALAZAR Room #: DEP [facility]#: [id number] Admission: 08/26/20 Attend Phys: Discharge: 08/27/20 Date of : 48 Report #: [id number] THIS REPORT FOR: cc: DAVID Douglas family physician/PCP DAVID - Stella family physician/PCP Bacilio Queen MD [facility] ~ THIS REPORT FOR: //name// [facility] ED Test Date: 2020-08-27 Test Time: 02:28:27 Pat Name: REDDY SALAZAR Department: Room: Gender: Stain Maker: ANA MARÍAROGE : 1950 Requested By: Chinmay Larson Order Number: [id number] MD: Bacilio Queen Measurements Intervals Dobson Rate: 72 P: 66 OK: 163 QRS: 24 QRSD: 83 T: 66 QT: 397 QTc: 435 Interpretive Statements Sinus rhythm Ventricular premature complex Consider left ventricular hypertrophy Baseline wander in lead(s) V2 No previous ECG available for comparison Electronically Signed On 08-27-2020 9:29:51 GAMBLING DEALER by Bacilio Queen [email or web address] <ELECTRONICALLY SIGNED> By: Bacilio Queen MD, FACC [id number] 7 [id number] Bacilio Queen MD, [facility] /EPI
== END 2020-08-27 04:40 ==
LOC: ER 21:04
PROVIDERS: Emergency Medicine
DX: F20.9 Schizophrenia, unspecified (principal); E11.65 Type 2 diabetes mellitus with hyperglycemia; I10 Essential (primary) hypertension; E78.5 Hyperlipidemia, unspecified; F17.210 Nicotine dependence, cigarettes, uncomplicated; Z79.4 Long term (current) use of insulin; Z79.899 Other long term (current) drug therapy; Z79.82 Long term (current) use of aspirin; Z88.8 Allergy status to other drugs, medicaments and biological substances; Z20.828 Contact with and (suspected) exposure to other viral communicable diseases

== ENCOUNTER 2020-08-27 04:38 | Inpatient (IN) | payer OTHER, MEDICAID ==
[~2020-08-27] VITALS: Ht 167.6 cm; Wt 64.8 kg
[2020-08-27 05:25] VITALS: BP 147/84
[2020-08-27 08:00] VITALS: BP 77/35
[2020-08-27 08:02] VITALS: BP 90/49
[2020-08-27 08:04] VITALS: BP 90/50
[2020-08-27 09:59] LABS: ABSOLUTE NEUTROPHILS 3.4 thou/uL (1.4-8.2); BASOPHILS 0.8 % (0.0-2.0); EOSINOPHILS 0.9 % (0.0-3.0); HEMOGLOBIN 12.2 gm/dL (14.0-18.0); LYMPHOCYTES 21.1 % (24.0-44.0); MCH 28.9 pg (26.0-34.0); MCHC 32.1 g/dL (28.0-37.0); MCV 89.9 fL (80.0-100.0); MONOCYTES 8.4 % (1.0-8.0); PLATELET COUNT 269 thou/uL (150-400); POLYS 68.8 % (36.0-66.0); RBC 4.22 mil/uL (4.50-6.00); RDW 14.5 % (10.5-14.5)
[2020-08-27 10:00] VITALS: BP 110/76
[2020-08-27 10:06] LABS: CALCIUM 8.4 mg/dL (8.5-10.1); CREATININE 1.1 mg/dL (0.7-1.3); POTASSIUM 4.2 mmol/L (3.5-5.1)
[2020-08-27 10:13] LABS: MAGNESIUM 1.8 mg/dL (1.8-2.4); PHOSPHORUS 3.2 mg/dL (2.5-4.9); TOTAL BILIRUBIN 0.6 mg/dL (0.2-1.0); TOTAL PROTEIN 7.1 g/dL (6.4-8.2)
[2020-08-27 13:05] LABS: URINE CREATININE-RANDOM* 38.3 mg/dL
[2020-08-27 20:14] VITALS: BP 125/77
[2020-08-28 07:07] LABS: GLYCOHEMOGLOBIN (HGB A1C) 15.9 % (4.8-5.6)
[2020-08-28 08:30] VITALS: BP 122/74
[2020-08-28 09:50] LABS: ABSOLUTE NEUTROPHILS 4.5 thou/uL (1.4-8.2); BASOPHILS 0.8 % (0.0-2.0); HEMATOCRIT 41.4 % (42.0-52.0); HEMOGLOBIN 13.2 gm/dL (14.0-18.0); LYMPHOCYTES 24.2 % (24.0-44.0); MCH 29.4 pg (26.0-34.0); MCHC 31.9 g/dL (28.0-37.0); MCV 92.3 fL (80.0-100.0); MONOCYTES 7.4 % (1.0-8.0); PLATELET COUNT 252 thou/uL (150-400); POLYS 66.6 % (36.0-66.0); RBC 4.49 mil/uL (4.50-6.00); RDW 14.8 % (10.5-14.5); WBC 6.8 thou/uL (4.0-11.0)
[2020-08-28 10:04] LABS: CALCIUM 9.1 mg/dL (8.5-10.1); CREATININE 1.3 mg/dL (0.7-1.3); MAGNESIUM 1.9 mg/dL (1.8-2.4); PHOSPHORUS 3.9 mg/dL (2.5-4.9); POTASSIUM 4.5 mmol/L (3.5-5.1)
[2020-08-28 10:19] VITALS: BP 122/74
[2020-08-28 19:21] VITALS: BP 150/78
[2020-08-30 04:31] VITALS: BP 126/69
[2020-08-31 07:08] LABS: GLYCOHEMOGLOBIN (HGB A1C) 14.9 % (4.8-5.6)
[2020-08-31 20:00] VITALS: BP 142/83
[2020-09-01 07:10] VITALS: BP 119/66
[2020-09-01 14:49] LABS: ABSOLUTE NEUTROPHILS 3.4 thou/uL (1.4-8.2); BASOPHILS 0.8 % (0.0-2.0); EOSINOPHILS 1.3 % (0.0-3.0); HEMOGLOBIN 11.8 gm/dL (14.0-18.0); LYMPHOCYTES 30.2 % (24.0-44.0); MCH 28.9 pg (26.0-34.0); MCHC 31.8 g/dL (28.0-37.0); MCV 90.9 fL (80.0-100.0); MONOCYTES 9.7 % (1.0-8.0); PLATELET COUNT 201 thou/uL (150-400); RBC 4.07 mil/uL (4.50-6.00); RDW 14.5 % (10.5-14.5); WBC 5.9 thou/uL (4.0-11.0)
[2020-09-01 19:46] VITALS: BP 122/58
[2020-09-02 07:00] VITALS: BP 138/70
[2020-09-02 09:31] VITALS: BP 138/70
[2020-09-02 19:37] VITALS: BP 141/65
[2020-09-03 08:44] VITALS: BP 144/75
[2020-09-03 19:43] VITALS: BP 131/66
[2020-09-04 05:24] LABS: ABSOLUTE NEUTROPHILS 2.4 thou/uL (1.4-8.2); EOSINOPHILS 1.3 % (0.0-3.0); HEMATOCRIT 33.3 % (42.0-52.0); HEMOGLOBIN 10.8 gm/dL (14.0-18.0); MCH 29.7 pg (26.0-34.0); MCHC 32.5 g/dL (28.0-37.0); MCV 91.2 fL (80.0-100.0); MONOCYTES 7.7 % (1.0-8.0); PLATELET COUNT 168 thou/uL (150-400); RBC 3.65 mil/uL (4.50-6.00); RDW 14.2 % (10.5-14.5); WBC 4.9 thou/uL (4.0-11.0)
[2020-09-04 06:26] LABS: ALBUMIN 2.8 g/dL (3.4-5.0); CALCIUM 8.7 mg/dL (8.5-10.1); CREATININE 1.2 mg/dL (0.7-1.3); POTASSIUM 4.7 mmol/L (3.5-5.1); TOTAL BILIRUBIN 0.3 mg/dL (0.2-1.0); TOTAL PROTEIN 6.4 g/dL (6.4-8.2)
[2020-09-04 07:35] VITALS: BP 124/62
[2020-09-04 10:51] VITALS: BP 124/62
[2020-09-04 18:55] VITALS: BP 143/71
[2020-09-05 04:25] VITALS: BP 143/71
[2020-09-05 08:00] VITALS: BP 108/53
[2020-09-05 08:45] VITALS: BP 108/53
[2020-09-05 11:41] VITALS: BP 108/53
[2020-09-05 19:34] VITALS: BP 114/61
[2020-09-05 20:00] VITALS: BP 114/61
[2020-09-06 07:42] VITALS: BP 149/84
[2020-09-06 19:15] VITALS: BP 148/79
[2020-09-07 07:15] VITALS: BP 122/54
[2020-09-07 11:12] VITALS: BP 122/54
[2020-09-07 20:00] VITALS: BP 142/74
[2020-09-08 09:25] VITALS: BP 134/68
[2020-09-08 09:47] VITALS: BP 134/68
[2020-09-08 20:11] VITALS: BP 139/60
[2020-09-09 09:09] VITALS: BP 141/65
[2020-09-09 09:37] VITALS: BP 141/65
[2020-09-09 20:01] VITALS: BP 143/80
[2020-09-10 07:39] VITALS: BP 138/73
[2020-09-10 08:00] VITALS: BP 138/73
[2020-09-10 20:08] VITALS: BP 123/55
[2020-09-11 08:00] VITALS: BP 147/83
[2020-09-11 09:00] VITALS: BP 147/83
[2020-09-11 19:56] VITALS: BP 138/76
[2020-09-12 07:34] VITALS: BP 137/78
[2020-09-12 19:00] VITALS: BP 117/64
[2020-09-13 19:25] VITALS: BP 141/82
[2020-09-14 09:00] VITALS: BP 127/60
[2020-09-14 19:27] VITALS: BP 128/65
[2020-09-15 09:08] VITALS: BP 136/90
[2020-09-15 20:08] VITALS: BP 142/63
[2020-09-16 03:23] VITALS: BP 142/63
[2020-09-16 07:15] VITALS: BP 130/63
[2020-09-16 10:05] VITALS: BP 130/63
[2020-09-16 19:42] VITALS: BP 130/72
[2020-09-17 07:49] VITALS: BP 155/80
[2020-09-17 19:34] VITALS: BP 127/70
[2020-09-17 21:46] VITALS: BP 155/80
[2020-09-18 09:39] VITALS: BP 148/76
[2020-09-18 19:35] VITALS: BP 123/66
[2020-09-19 09:46] VITALS: BP 136/75
[2020-09-19 10:40] VITALS: BP 136/75
[2020-09-19 20:00] VITALS: BP 144/80
[2020-09-19 20:26] VITALS: BP 144/80
[2020-09-20 09:02] VITALS: BP 127/65
[2020-09-20 10:00] VITALS: BP 127/65
[2020-09-20 19:47] VITALS: BP 119/68
[2020-09-21 08:30] VITALS: BP 119/65
[2020-09-21] MEDS ORDERED: ACETAMINOPHEN650 M5 PO (11:52)
[2020-09-21] MEDS ORDERED: DIVALPROEX SOD250 M3 PO (11:53)
[2020-09-21] MEDS ORDERED: DEPAKOTE 250MG250 M1 PO (11:54)
[2020-09-21] MEDS ORDERED: GABAPENTIN 100100 MG PO (11:55)
[2020-09-21] MEDS ORDERED: SEROQUEL XR 20200 MG PO (11:56)
[2020-09-21] MEDS ORDERED: CALTRATE-600 W1 EACH PO (11:58)
[2020-09-21] MEDS ORDERED: GLUCOPHAGE500 MG PO (11:59)
[2020-09-21] MEDS ORDERED: HUMULIN 70100 UNIT/2 SUBQ ×2 (11:59)
--- NOTE | 2020-09-22 21:38 | D ---
[facility] [address] [address] [place] [address] DISCHARGE SUMMARY Name: REDDY SALAZAR Room #: 517-A [facility] IN M.R.#: [id number] Admission: 08/27/20 Attend Phys: Ronni Diehl DO Discharge: 09/21/20 Date of : 48 Report #: [id number] THIS REPORT FOR: cc: DAVID - No family physician/PCP FAM - No family physician/PCP Ronni Diehl DO ~ DATE OF SERVICE: 09/21/2020 INPATIENT PSYCHIATRIC DISCHARGE SUMMARY ATTENDING PSYCHIATRIST: Ronni Diehl DO. DRAPERY CUTTER MACHINE AT THE TIME OF DISCHARGE: Dr. Robbins. DISCHARGE DIAGNOSES: Major neurocognitive disorder, likely multifactorial etiology, schizoaffective disorder. Other morbidities include diabetes mellitus, insulin requiring; hypertension; right inferior orbital fracture found at the time of admission, not requiring operative intervention; benign prostatic hypertrophy. He originally on electrolyte disturbance, which resolved, had some protein-calorie malnutrition, but he has been chronically homeless. DISCHARGE PLAN: The patient is discharging to the [facility] for [facility] care. Psychiatric and medical care to be provided by receiving facility. DISCHARGE MEDICATIONS: Acetaminophen 650 mg p.o. twice per day for chronic pain, Depakote sodium 1250 mg p.o. at 0900 and 1250 mg p.o. at 9:00 p.m. 12 hours apart, Neurontin 100 mg p.o. 3 times a day for pain, Seroquel XR 600 mg p.o. at bedtime for psychosis, calcium carbonate 500 mg p.o. t.i.d., metformin 250 mg p.o. b.i.d. with meals, his insulin regimen is 70/30 8 units subcutaneous 0800, 6 units subcutaneously 1700, tamsulosin 0.4 mg p.o. daily, mirtazapine 7.5 mg p.o. at bedtime for sleep. LABORATORY DATA: The patient's most recent laboratories, 09/04/2020, H and H 10.8 and 33.3, white count 4.9, platelet count 168. Most recent chemistry was from 09/04/2020, sodium 139, potassium 4.7, chloride 102, bicarbonate 20, anion gap 9, BUN 27, creatinine 1.2, estimated GFR 72. Hemoglobin A1c 14.9 on 08/29/2020 and calcium 8.7 on 09/04/2020, phosphorus 4.0, magnesium 2.0, total bilirubin 0.3, AST 14, ALT 24, total protein 6.4, albumin 2.8. TSH 1.078. Urinalysis was negative except for glucose of course. Toxicology is negative. Depakote level on 09/09/2020 was 66. COVID-19 PCR serology was negative on 08/27/2020 and 09/20/2020. REASON FOR ADMISSION: Back in mid August was as follows: The patient was transferred from [facility] ER, had been brought there by ambulance after he was found in a convenience store was not redirectable. He is not able [address] [address] DISCHARGE SUMMARY Name: REDDY SALAZAR Room #: 517-A DIS IN M.R.#: [id number] Admission: 08/27/20 Attend Phys: Ronni Diehl, Discharge: 09/21/20 Date of : 48 Report #: [id number] to answer questions in linear manner. He yells, screams and was cursing. HOSPITAL COURSE: The patient was admitted to Geriatric Psychiatry Unit. The patient was yelling, labile, difficult to redirect initially. They originally started him on Haldol, switched to Seroquel, added Depakote for synergistic effect. The patient simmers down nicely. He became agreeable to unit activities. We did have issues with him hoarding food. Eventually, we got him down to just 1800-calorie diabetic diet. We thought about guardianship initially with his daughter, Tatiana, who is his DPOA. She was helped to get him in place. The patient has a neurodegenerative disorder in my opinion and will need ongoing memory care placement. CONDITION AT DISCHARGE: Stable. PHYSICAL EXAMINATION: VITAL SIGNS: Temperature 36.6, pulse 82, respirations 16, BP 119/65, O2 sat 98%. Last glucose on the day of discharge was 208. MUSCULOSKELETAL: He does have some gait disturbance but he does fine with a walker. MENTAL STATUS EXAMINATION: This is a thin black male appearing at least stated age. Attention limited. Concentration limited. Speech slowed. Thought process is linear and goal directed in general. Thought content, some poverty of thought. No psychomotor agitation. No psychomotor retardation. Denied SI or HI. Denied auditory, visual, or tactile hallucination. Denied hopelessness, helplessness. Mood and affect was constricted, congruent, diminished range. Memory was not formally tested. Insight limited. Judgment limited. Fund of knowledge below average. PROGNOSIS: For this patient is guarded and will depend on diabetes control, supportive living environment and obviously no alcohol, no drug use and not being homeless. <ELECTRONICALLY SIGNED> By: Ronni Diehl DO 09/22/208 54 01 Ronni Diehl, DO /nt
== END 2020-09-21 13:20 | DRG 885 ==
LOC: SBH 04:38
PROVIDERS: Hospitalist; Internal Medicine; ADMIT Psychiatry & Neurology Psychiatry; ATTEND Psychiatry & Neurology Psychiatry
DX: F31.2 Bipolar disorder, current episode manic severe with psychotic features (principal); F01.50 Vascular dementia, unspecified severity, without behavioral disturbance, psychotic disturbance, mood disturbance, and anxiety; S02.85XA Fracture of orbit, unspecified, initial encounter for closed fracture; E46 Unspecified protein-calorie malnutrition; E87.1 Hypo-osmolality and hyponatremia; E11.9 Type 2 diabetes mellitus without complications; I10 Essential (primary) hypertension; N40.0 Benign prostatic hyperplasia without lower urinary tract symptoms; F17.210 Nicotine dependence, cigarettes, uncomplicated; Z20.828 Contact with and (suspected) exposure to other viral communicable diseases; Z88.8 Allergy status to other drugs, medicaments and biological substances; Z59.0 Homelessness; Z68.23 Body mass index [BMI] 23.0-23.9, adult; Z79.899 Other long term (current) drug therapy; X58.XXXA Exposure to other specified factors, initial encounter; Y93.89 Activity, other specified; Y92.89 Other specified places as the place of occurrence of the external cause; Y99.8 Other external cause status
CPT/HCPCS: 10880